=== PATIENT | female | born 1965 | race Caucasian/White ===

== ENCOUNTER → 2020-01-10 10:52 | Outpatient (BNVA) | payer OTHER, MEDICAID, SELFPAY | PROVIDERS: Family Provider Family Medicine; PCP Family Medicine; Visit Provider Family Medicine | DX: J44.9 Chronic obstructive pulmonary disease, unspecified (principal); K86.3 Pseudocyst of pancreas; J30.9 Allergic rhinitis, unspecified; N76.0 Acute vaginitis; B37.3 Candidiasis of vulva and vagina; Z13.6 Encounter for screening for cardiovascular disorders; Z13.220 Encounter for screening for lipoid disorders | CPT/HCPCS: 80053; 80061; 83690; 85025 ==

== ENCOUNTER 2020-01-28 13:27 | Inpatient (IN) | payer MEDICARE, MEDICAID, SELFPAY ==
[2020-01-28] VITALS (17 sets, daily range): BP systolic 92–112; BP diastolic 56–74; PULSE 76–111; RESP 18–37; TEMP 36.7–37.3; O2SAT 86–100; BMI 27.8
--- NOTE | 2020-01-28 13:56 | ECG_ITS ---
Measurements Intervals [place] Rate: 100 P: 36 MI: 125 QRS: -17 QRSD: 97 T: 26 QT: 338 QTc: 437 SINUS TACHYCARDIA POSSIBLE LEFT ATRIAL ENLARGEMENT [-0.1mV P WAVE IN V1/V2] No previous ECG available for comparison Electronically Signed On 01-28-2020 19:42:09 CDT by Tiffany Granda M.D. [id number]
--- NOTE | 2020-01-28 13:56 | XR_ITS ---
WS: [id number] Portable AP upright chest, 01/28/2020 Clinical Data: dyspnea Comparison: None. Findings: Bilateral patchy opacities are seen throughout both lungs. These opacities could represent early pneumonia or an unusual pulmonary vascular congestion. The heart size is normal. No pleural eff usions are seen. There are no large masses. There are clips in the right upper quadrant from a cholec ystectomy. XR/XR chest 1V portable [id number] Impression: 1. Diffuse bilateral patchy opacities which could represent diffuse pneumonia o r unusual pulmonary edema. 2. Recommend repeat chest x-ray in one to 2 days.
[2020-01-28] MEDS: sodium chloride 0.9% 1,000 ML 999 ML IV (14:16)
[2020-01-28] MEDS: ketorolac 30 mg/mL INJ 15 MG IVP (14:17)
[2020-01-28 14:27] LABS: ABG PCO2 37.9 mmHg (35-45); ABG PH Result 7.43 (7.35-7.45); Arterial Blood Gas Hematocrit 41.2 % (37-47); Base Excess ABG 1.1 mmol/L (-2.0-2.0); Blood Gas Allen Test Pos; Blood Gas Sample Site Radial, right; Blood Gas Sample Type Arterial; HCO3 ABG 25.3 mmol/L (22-26); Oxygen Device NC; PO2 ABG 72.1 mmHg (80.0-100.0)
[2020-01-28 14:27] LABS: Basophils % 0.4 %; Eosinophils # 0.7 10^3/uL (0.0-0.8); Eosinophils % 7.3 %; Hematocrit 40.7 % (37.0-47.0); Hemoglobin 13.1 g/dL (11.5-15.3); Lymphocytes # 1.1 10^3/uL (0.8-4.8); Lymphocytes % 11.7 %; Mean Corpuscular HGB Conc 32.2 g/dL (30.0-36.0); Mean Corpuscular Hemoglobin 30.7 pg (28.0-34.0); Mean Corpuscular Volume 95.3 fL (81-99); Mean Platelet Volume 11.3 fL (7.4-10.4); Monocytes # 0.4 10^3/uL (0.2-0.9); Monocytes % 4.2 %; Neutrophils # 7.4 10^3/uL (1.8-7.7); Nucleated Red Blood Cells % 0 %; Platelet Count 155 10^3/cmm (130-400); Red Blood Count 4.27 10^6/uL (4.1-5.3); Red Cell Distribution Width 14.1 % (12.1-15.1); White Blood Count 9.8 10^3/uL (4.0-10.0)
[2020-01-28 14:29] LABS: Lactate (Lactic Acid level) 2.5 mmol/L (0.5-2.2)
[2020-01-28 14:31] LABS: Troponin(5th) Baseline 10 ng/mL (0-10)
--- NOTE | 2020-01-28 14:33 | ED_ITS ---
HPI - Chest Pain General: Chief Complaint: Chest Pain Stated Complaint: cp/ sob Time Seen by Provider: 01/28/20 13:43 History of Present Illness: HPI narrative: Patient is a 54-year-old female presenting with shortness of breath. She reports that the shortness of breath started 3 days ago without any obvious cause. She did fall about a week ago and hit the left side of her ribs and her left shoulder on a bathtub. She does not think that caused her shortness of breath. She has had a productive cough. She had a low-grade fever less than 100 today. She does not normally have any problems with her lungs but has had an episode of pneumonia in the past. She denies any cardiac history. She is having pain across the left lower rib cage which she describes as dull and aching. She denies any sick contacts, travel, loss of sense of smell or taste. complaint: chest pain and chest heaviness Onset (ago): day(s) (3) Timing of current episode: constant Prior episodes: No Onset: during rest Pain location: left chest Pain radiation: back Severity: moderate Quality: aching and heaviness Relieving factors: nothing Exacerbating factors: nothing Associated symptoms: Reports diaphoresis, dyspnea, fever(s) and nausea; Deny vomiting Review of Systems General: Reports: 10 or more systems reviewed and unremarkable except in HPI and below Const: Reports: fever(s), chills, change in appetite, fatigue, malaise and diaphoresis; Denies: body aches ENMT: Denies: throat pain or odynophagia Card: Reports: chest pain, swelling of feet/ankles and lightheadedness Resp: Reports: dyspnea, productive cough and wheezing GI: Reports: nausea; Denies: vomiting, diarrhea or constipation : Denies: difficulty voiding or dysuria Musc: Reports: back pain, extremity swelling and other (ecchymosis left shoulder) Neuro: Denies: headache(s), numbness in extremities or weakness in extremities Codey/Lymph: Denies: easy bruising or easy bleeding PFS ED PFSH: Medical History Chronic constipation Chronic idiopathic pain syndrome Chronic neck pain Chronic pain of right knee COPD (chronic obstructive pulmonary disease) Fibromyalgia Hypokalemia Overactive bladder Pancreatic pseudocyst Spinal stenosis of lumbar region Surgical History H/O gastric bypass History of knee replacement Social History Smoking and tobacco status: current every day smoker cigarettes Packs smoked per day: 0.5 Quit status (tobacco): not considering quitting Alcohol intake: never History of recent travel: No Physical Exam Const: COMMON NORMALS: average body habitus, patient oriented x3 and alert GENERAL APPEARANCE: lethargic (slightly) ORIENTATION/CONSCIOUSNESS: Yes lethargic (slightly) HENMT: COMMON NORMALS: hearing grossly normal bilaterally HEAD & SCALP: normal to inspection FACE & SINUS: normal facial exam Eye: COMMON NORMALS: Equal, round and reactive pupils present and EOMs intact bilaterally PUPIL: Yes Equal, round and reactive pupils present Neck/C-Spine: COMMON NORMALS: full ROM, supple and no meningeal signs Chest: COMMONS NORMALS: normal inspection of the chest CHEST: Yes tenderness (mild left lateral ribs) Resp: EFFORT & INSPECTION: Yes tachypneic and Yes uses accessory muscles AUSCULTATION: wheezes expiratory wheezes, inspiratory wheezes, left lower and left upper and diminished lung sounds on the left Cardio: COMMON NORMALS: regular rate and No murmurs present (Cardio) RATE: regular rate GI: COMMON NORMALS: Normal to inspection, nondistended, normoactive bowel sounds present, Soft to palpation, non-tender, No hepatosplenomegaly present and no masses PALPATION: Yes Soft to palpation and Yes No hepatosplenomegaly present Back/Pelvis: COMMON NORMALS: thoracic and lumbar spine normal to inspection Neuro: COMMON NORMALS: patient oriented x3 SENSORIUM/ORIENTATION: Yes alert and Yes lethargic (slightly) MENINGEAL SIGNS: Yes no meningeal signs CRANIAL NERVES: Yes CN normal except as noted Skin: SKIN IMAGES (FEMALE): 1. ecchymosis Course ED course: Patient with severe shortness of breath and chest pain for 3 days. Markedly hypoxic on room air. She also reports fever, body aches, cough. I suspect the shortness of breath is related to CHF based on her labs and chest x- ray. She is also being ruled out for COVID. I gave her dose of Lasix in the ER as well as a dose of Lovenox. Her d-dimer is also quite elevated but doing a CT at this time will be difficult because of the COVID rule out. If she does rule out she can go for CT tomorrow. In the meanwhile she is anticoagulated. Consultations: Consultation #1: Hospitalist consulted for admission. Vital Signs: Vital signs: Vital Signs Temperature 99.2 F 01/28/20 13:27 Pulse Rate 111 H 01/28/20 13:27 Respiratory Rate 18 01/28/20 15:25 Blood Pressure 103/61 01/28/20 13:27 Pulse Oximetry 99 01/28/20 15:25 MDM - Chest Pain MDM Narrative: Medical decision making narrative: Chest pain, recent fall but no sign of fractures. Chest x-ray with signs of fluid overload. BNP elevated. Troponin and EKGs normal. COVID pending. Lab Data: Labs: Lab Results 01/28/20 01/28/20 01/28/20 Range/Units 14:04 14:04 14:04 WBC 9.8 (4.0-10.0) 10^3/ uL RBC 4.27 (4.1-5.3) 10^6/u L Hgb 13.1 (11.5-15.3) g/dL Hct 40.7 (37.0-47.0) % MCV 95.3 (81-99) fL MCH 30.7 (28.0-34.0) pg MCHC 32.2 (30.0-36.0) g/dL RDW 14.1 (12.1-15.1) % Plt Count 155 (130-400) 10^3/c mm MPV 11.3 H (7.4-10.4) fL Neut % (Auto) 76.0 % Lymph % (Auto) 11.7 % Villalba % (Auto) 4.2 % Eos % (Auto) 7.3 % Baso % (Auto) 0.4 % Neut # (Auto) 7.4 (1.8-7.7) 10^3/u L Lymph # (Auto) 1.1 (0.8-4.8) 10^3/u L Villalba # (Auto) 0.4 (0.2-0.9) 10^3/u L Eos # (Auto) 0.7 (0.0-0.8) 10^3/u L Baso # (Auto) 0.0 (0.0-0.1) 10^3/u L Nucleated RBC % (a uto) 0 % Nucleated RBCs # 0.0 /100WBC ESR 35 H (0-15) mm/hr D-Dimer (0-0.59) ug/mIFE U Specimen Type Sample Site ABG pH (7.35-7.45) ABG pCO2 (35-45) mmHg ABG pO2 (80.0-100.0) mmH g ABG HCO3 (22-26) mmol/L ABG Base Excess (-2.0-2.0) mmol/ L Michael Test Hematocrit (37-47) % O2 Delivery Device O2 Liters/Min % Carbide Tool Die Maker ID Sodium 141 (136-145) mmol/L Potassium 4.9 (3.5-5.1) mmol/L Chloride 103 (98-107) mmol/L Carbon Dioxide 24 (22-29) mmol/L Anion Gap 18.9 (5-19) BUN 10 (6-20) mg/dL Creatinine 0.6 (0.5-0.9) mg/dL GFR Calculation 103.8 (90-130) mL/min Glucose 99 (65-115) mg/dL Calculated Osmolal ity 288 (285-295) mOsm/k g Lactate (0.5-2.2) mmol/L Calcium 9.6 (8.5-10.5) mg/dL Total Bilirubin 0.9 (0.15-1.2) mg/dL AST 43 H (0-32) U/L ALT 23 (0-33) U/L Alkaline Phosphata se 106 H (35-105) IU/L Troponin T Baselin e (0-10) ng/mL C-Reactive Protein 214.6 H (0.0-4.9) mg/L NT-Pro-B Natriuret Pep 1588 H (0-125) pg/mL Total Protein 6.2 L (6.6-8.7) g/dL Albumin 3.3 L (3.5-5.2) g/dL Globulin 2.9 (1.3-4.6) g/dL Procalcitonin 0.24 (0-0.5) ng/mL Urine Color (Yellow) Urine Appearance (CLEAR) Urine pH (5-7) Ur Specific Gravit y (1.005-1.030) Urine Protein (Negative) Urine Glucose (UA) (Normal) Urine Ketones (Negative) Urine Blood (Negative) Urine Nitrate (Negative) Urine Bilirubin (NEGATIVE) Urine Urobilinogen (Negative) mg/dL Ur Leukocyte Sabi ase (Negative) Urine RBC (0-2) /hpf Urine WBC (0-5) /hpf Ur Squamous Epith Cells (0-5) Urine Bacteria (NONE) 01/28/20 01/28/20 01/28/20 Range/Units 14:04 14:04 14:04 WBC (4.0-10.0) 10^3/ uL RBC (4.1-5.3) 10^6/u L Hgb (11.5-15.3) g/dL Hct (37.0-47.0) % MCV (81-99) fL MCH (28.0-34.0) pg MCHC (30.0-36.0) g/dL RDW (12.1-15.1) % Plt Count (130-400) 10^3/c mm MPV (7.4-10.4) fL Neut % (Auto) % Lymph % (Auto) % Villalba % (Auto) % Eos % (Auto) % Baso % (Auto) % Neut # (Auto) (1.8-7.7) 10^3/u L Lymph # (Auto) (0.8-4.8) 10^3/u L Villalba # (Auto) (0.2-0.9) 10^3/u L Eos # (Auto) (0.0-0.8) 10^3/u L Baso # (Auto) (0.0-0.1) 10^3/u L Nucleated RBC % (a uto) % Nucleated RBCs # /100WBC ESR (0-15) mm/hr D-Dimer 1.98 H (0-0.59) ug/mIFE U Specimen Type Sample Site ABG pH (7.35-7.45) ABG pCO2 (35-45) mmHg ABG pO2 (80.0-100.0) mmH g ABG HCO3 (22-26) mmol/L ABG Base Excess (-2.0-2.0) mmol/ L Michael Test Hematocrit (37-47) % O2 Delivery Device O2 Liters/Min % Carbide Tool Die Maker ID Sodium (136-145) mmol/L Potassium (3.5-5.1) mmol/L Chloride (98-107) mmol/L Carbon Dioxide (22-29) mmol/L Anion Gap (5-19) BUN (6-20) mg/dL Creatinine (0.5-0.9) mg/dL GFR Calculation (90-130) mL/min Glucose (65-115) mg/dL Calculated Osmolal ity (285-295) mOsm/k g Lactate 2.5 H (0.5-2.2) mmol/L Calcium (8.5-10.5) mg/dL Total Bilirubin (0.15-1.2) mg/dL AST (0-32) U/L ALT (0-33) U/L Alkaline Phosphata se (35-105) IU/L Troponin T Baselin e 10 (0-10) ng/mL C-Reactive Protein (0.0-4.9) mg/L NT-Pro-B Natriuret Pep (0-125) pg/mL Total Protein (6.6-8.7) g/dL Albumin (3.5-5.2) g/dL Globulin (1.3-4.6) g/dL Procalcitonin (0-0.5) ng/mL Urine Color (Yellow) Urine Appearance (CLEAR) Urine pH (5-7) Ur Specific Gravit y (1.005-1.030) Urine Protein (Negative) Urine Glucose (UA) (Normal) Urine Ketones (Negative) Urine Blood (Negative) Urine Nitrate (Negative) Urine Bilirubin (NEGATIVE) Urine Urobilinogen (Negative) mg/dL Ur Leukocyte Sabi ase (Negative) Urine RBC (0-2) /hpf Urine WBC (0-5) /hpf Ur Squamous Epith Cells (0-5) Urine Bacteria (NONE) 01/28/20 01/28/20 Range/Units 14:16 14:21 WBC (4.0-10.0) 10^3/ uL RBC (4.1-5.3) 10^6/u L Hgb (11.5-15.3) g/dL Hct (37.0-47.0) % MCV (81-99) fL MCH (28.0-34.0) pg MCHC (30.0-36.0) g/dL RDW (12.1-15.1) % Plt Count (130-400) 10^3/c mm MPV (7.4-10.4) fL Neut % (Auto) % Lymph % (Auto) % Villalba % (Auto) % Eos % (Auto) % Baso % (Auto) % Neut # (Auto) (1.8-7.7) 10^3/u L Lymph # (Auto) (0.8-4.8) 10^3/u L Villalba # (Auto) (0.2-0.9) 10^3/u L Eos # (Auto) (0.0-0.8) 10^3/u L Baso # (Auto) (0.0-0.1) 10^3/u L Nucleated RBC % (a uto) % Nucleated RBCs # /100WBC ESR (0-15) mm/hr D-Dimer (0-0.59) ug/mIFE U Specimen Type Arterial Sample Site Radial, right ABG pH 7.43 (7.35-7.45) ABG pCO2 37.9 (35-45) mmHg ABG pO2 72.1 L (80.0-100.0) mmH g ABG HCO3 25.3 (22-26) mmol/L ABG Base Excess 1.1 (-2.0-2.0) mmol/ L Michael Test Pos Hematocrit 41.2 (37-47) % O2 Delivery Device Nc O2 Liters/Min 4.0 % Carbide Tool Die Maker ID jmn Sodium (136-145) mmol/L Potassium (3.5-5.1) mmol/L Chloride (98-107) mmol/L Carbon Dioxide (22-29) mmol/L Anion Gap (5-19) BUN (6-20) mg/dL Creatinine (0.5-0.9) mg/dL GFR Calculation (90-130) mL/min Glucose (65-115) mg/dL Calculated Osmolal ity (285-295) mOsm/k g Lactate (0.5-2.2) mmol/L Calcium (8.5-10.5) mg/dL Total Bilirubin (0.15-1.2) mg/dL AST (0-32) U/L ALT (0-33) U/L Alkaline Phosphata se (35-105) IU/L Troponin T Baselin e (0-10) ng/mL C-Reactive Protein (0.0-4.9) mg/L NT-Pro-B Natriuret Pep (0-125) pg/mL Total Protein (6.6-8.7) g/dL Albumin (3.5-5.2) g/dL Globulin (1.3-4.6) g/dL Procalcitonin (0-0.5) ng/mL Urine Color Yellow (Yellow) Urine Appearance Clear (CLEAR) Urine pH 5 (5-7) Ur Specific Gravit y 1.010 (1.005-1.030) Urine Protein Neg (Negative) Urine Glucose (UA) Norm (Normal) Urine Ketones Negative (Negative) Urine Blood 2+ H (Negative) Urine Nitrate Negative (Negative) Urine Bilirubin Neg (NEGATIVE) Urine Urobilinogen 1 H (Negative) mg/dL Ur Leukocyte Sabi ase Negative (Negative) Urine RBC 0-4 H (0-2) /hpf Urine WBC None (0-5) /hpf Ur Squamous Epith Cells 0-4 H (0-5) Urine Bacteria Trace (NONE) EKG Data^: EKG 1: EKG interpretation date: 01/28/20 EKG interpretation time: 13:07 Interpretation: Sinus tach at 100. Normal intervals and axis. No ST changes EKG 2: EKG interpretation date: 01/28/20 EKG interpretation time: 16:55 Interpretation: NSR at 87. Normal intervals and axis. No ST changes. Discharge Plan Discharge Admit Provider: Lencho Zhang Coding Level of Care Code ED Coagulating Bath Operator for g Fwd Exam Comprehensive
[2020-01-28 14:41] LABS: NT Pro B Type Natriuretic Pept 1588 pg/mL (0-125); Procalcitonin 0.24 ng/mL (0-0.5)
[2020-01-28 14:52] LABS: Alanine Aminotransferase 23 U/L (0-33); Albumin Level 3.3 g/dL (3.5-5.2); Alkaline Phosphatase 106 IU/L (35-105); Anion Gap 18.9 (5-19); Aspartate Amino Transferase 43 U/L (0-32); Blood Urea Nitrogen 10 mg/dL (6-20); C Reactive Protein 214.6 mg/L (0.0-4.9); Calcium 9.6 mg/dL (8.5-10.5); Carbon Dioxide 24 mmol/L (22-29); Chloride 103 mmol/L (98-107); Globulin 2.9 g/dL (1.3-4.6); Glomerular Filtration Rate 103.8 mL/min (90-130); Glucose 99 mg/dL (65-115); Osmolality Calculated 288 mOsm/kg (285-295); Potassium 4.9 mmol/L (3.5-5.1); Sodium 141 mmol/L (136-145); Total Bilirubin 0.9 mg/dL (0.15-1.2); Total Protein 6.2 g/dL (6.6-8.7)
[2020-01-28 15:15] LABS: Add Urine Microscopic? YES; Bilirubin Urine Neg (NEGATIVE); Blood Urine 2+ (Negative); Glucose Urine UA Norm (Normal); Ketones Urine Negative (Negative); Leukocyte Esterase Urine Negative (Negative); Nitrate Urine Negative (Negative); Protein Urine Neg (Negative); Urine Appearance Clear (CLEAR); Urine Color Yellow (Yellow); Urobilinogen Urine 1 mg/dL (Negative); pH Urine 5 (5-7)
[2020-01-28] MEDS: ondansetron 2 mg/ML SDV 2 mL 4 MG IVP (15:24)
[2020-01-28] MEDS: morphine 4 mg/mL SDV 1 mL IVP (15:25)
[2020-01-28 15:29] LABS: Add Urine Culture? No; Bacteria Urine TRACE; RBC Urine 0-4 /hpf (0-2); Squamous Epithelial Cell Urine 0-4 (0-5)
[2020-01-28] MEDS: FUROsemide 10 mg/mL SDV 4mL 40 MG IVP (15:30)
[2020-01-28 15:50] LABS: Erythrocyte Sedimentation Rate 35 mm/hr (0-15)
--- NOTE | 2020-01-28 15:56 | ECG_ITS ---
Measurements Intervals [place] Rate: 87 P: 53 NC: 127 QRS: -14 QRSD: 95 T: 30 QT: 368 QTc: 443 SINUS RHYTHM LEFT ATRIAL ENLARGEMENT INCOMPLETE RIGHT BUNDLE BRANCH BLOCK No previous ECG available for comparison Electronically Signed On 01-28-2020 20:16:28 CDT by Tiffany Granda M.D. [id number]
[2020-01-28 16:15] LABS: D Dimer 1.98 ug/mIFEU (0-0.59)
[2020-01-28] MEDS: enoxaparin 80 mg/0.8 mL Syringe 70 MG SUBCUT (16:55)
--- NOTE | 2020-01-28 18:07 | PM.HP ---
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 This is accompanied by cough, occasionally with beige/yellowish sputum. 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 In ER she is noted requiring 4 L of oxygen, with diffuse bilateral patchy opacities representing diffuse pneumonia or unusual pulmonary edema. She does report bilateral lower extremity swelling which is new, although does report that it started on the right side with severe edema, then spread to both legs. She is a current smoker, and I see that she does take estrogen. She does have noted sinus tachycardia. She denies history of DVT or PE. She denies known history of coronary disease or heart failure. With normal renal function her BNP is elevated at 1588. The same time she does not have very significant orthopnea. She does report having fever on Tuesday enough to make her sweat, although did not measure it. In ER highest temperature is 99.2. She denies any sick contacts. Denies any travel. Review of Systems Const: Reports: malaise; Denies: fever(s), chills or body aches Eyes: Denies: change in vision or eye redness ENMT: Denies: throat pain, oral sores or ear or mastoid pain Card: Reports: chest pain, edema and dyspnea on exertion; Denies: pre-syncope Resp: Reports: dyspnea, productive cough and change in phlegm color; Denies: hemoptysis GI: Denies: abdominal pain, nausea, vomiting, diarrhea, constipation, hematochezia or melena : Denies: flank pain, urinary frequency or hematuria Musc: Denies: back pain, joint swelling or joint redness Skin/Breast: Denies: rash, sores or new lesions Neuro: Denies: headache(s), numbness in extremities, weakness in extremities, dizziness, confusion or seizure-like activity Endo: Denies: polyuria or polydipsia Codey/Lymph: Denies: easy bleeding or purpura All/Imm: Denies: urticaria, throat swelling or tongue swelling Medications/Allergies Home Medications Medication Instructions Recorded Confirmed Last Taken Type albuterol sulfate 90 mcg/actuation 1 inh INHALATION QID 10/13/19 01/28/20 01/28/20 History aerosol inhaler budesonide-formoterol HFA 160 2 puff INHALATION BID 10/13/19 01/28/20 01/28/20 History mcg-4.5 mcg/actuation aerosol inhaler cyanocobalamin (vitamin B-12) 1,000 mcg PO DAILY 10/13/19 01/28/20 01/28/20 History 1,000 mcg capsule eszopiclone 1 mg tablet 1 mg PO .bedtime tab 10/13/19 01/28/20 01/27/20 History ferrous sulfate 325 mg (65 mg 325 mg PO DAILY 10/13/19 01/28/20 01/28/20 History iron) tablet linaclotide 145 mcg capsule 145 mcg PO DAILY 10/13/19 01/28/20 01/28/20 History meloxicam 15 mg tablet 15 mg PO DAILY 10/13/19 01/28/20 01/28/20 History montelukast 10 mg tablet 10 mg PO DAILY 10/13/19 01/28/20 01/27/20 History oxycodone 10 mg tablet 10 mg PO TID PRN 10/13/19 01/28/20 01/28/20 History pregabalin 150 mg capsule 150 mg PO BID 10/13/19 01/28/20 01/28/20 History tizanidine 4 mg capsule See Rx Instructions PO DAILY PRN 10/14/19 01/28/20 01/28/20 Rx #30 cap MDD UP TO 2 CAPS fluticasone propionate 50 2 spray INTRANASAL Q12H 30 Days 01/10/20 01/28/20 01/27/20 Rx mcg/actuation nasal #18.2 ml spray,suspension kmviqw-gwvlsxwi-snicuch 1 cap PO BID 30 Days #60 cap 01/10/20 01/28/20 01/28/20 Rx 12,000-38,000-60,000 unit capsule,delayed rel loratadine 10 mg tablet 10 mg PO DAILY 30 Days #30 tab 01/10/20 01/28/20 01/28/20 Rx conjugated estrogens [Premarin] 0.3 mg PO DAILY 01/28/20 01/28/20 01/27/20 History hydroxyzine pamoate 50 mg PO BID 01/28/20 01/28/20 01/28/20 History lactulose 10 g PO DAILY 01/28/20 01/28/20 01/27/20 History pantoprazole 20 mg PO DAILY 01/28/20 01/28/20 01/28/20 History teriparatide [Forteo] 20 mcg SUBCUT DAILY 01/28/20 01/28/20 01/27/20 History Allergies Allergy/AdvReac Type Severity Reaction Status Date / Time Penicillins Allergy Unknown UNKNOWN Verified 01/10/20 09:26 tramadol Allergy Unknown UNKNOWN Verified 01/10/20 09:26 PFSH Acute PFSH: Medical History (Updated 01/28/20 @ 18:34 by Lencho Zhang MD) Chronic constipation Chronic idiopathic pain syndrome Chronic neck pain Chronic pain of right knee COPD (chronic obstructive pulmonary disease) Fibromyalgia Hypokalemia Overactive bladder Pancreatic pseudocyst Spinal stenosis of lumbar region Surgical History (Updated 01/28/20 @ 18:29 by Lencho Zhang MD) H/O gastric bypass H/O: hysterectomy History of carpal tunnel surgery History of knee replacement Hx of cholecystectomy Family History (Updated 01/28/20 @ 18:27 by Lencho Zhang MD) Other CAD (coronary artery disease) Diabetes Hyperlipidemia Social History Smoking and tobacco status: current every day smoker cigarettes Packs smoked per day: 0.5 Quit status (tobacco): not considering quitting Alcohol intake: never History of recent travel: No Vitals/I&O/Wt Last Vital Signs Temp 99.2 F 01/28/20 13:27 Pulse 76 01/28/20 17:55 Resp 18 01/28/20 17:55 BP 112/74 01/28/20 17:55 Pulse Ox 98 01/28/20 17:55 Weight last 48 hrs Weight 68.039 kg Physical Exam Const: COMMON NORMALS: no acute distress and patient oriented x3 HENMT: COMMON NORMALS: oropharynx normal Neck/C-Spine: COMMON NORMALS: no JVD Resp: COMMON NORMALS: normal respiratory effort AUSCULTATION: wheezes and diminished lung sounds Cardio: COMMON NORMALS: no JVD, regular rhythm, S1 normal heart sound present, S2 normal heart sound present and No murmurs present (Cardio) RATE: tachycardic RHYTHM: regular rhythm HEART SOUNDS: S1 normal heart sound present and S2 normal heart sound present GI: COMMON NORMALS: Normal to inspection, nondistended, normoactive bowel sounds present, Soft to palpation and non-tender PALPATION: Yes Soft to palpation Extremity: COMMON NORMALS: no joint enlargement GENERAL: Yes edema Neuro: COMMON NORMALS: patient oriented x3 and moves all extremities Skin: COMMON NORMALS: no rashes or lesions noted GENERAL SKIN EXAM: no rashes or lesions noted Data : 01/28/20 14:04 01/28/20 14:04 A&P Assessment and plan (1) Acute respiratory failure with hypoxia: Currently requiring 4 L of oxygen by nasal cannula. Appears this may be multifactorial including COPD with severe exacerbation with cough, productive yellowish sputum, hypoxia. Dyspnea. Not normally on oxygen. Will treat with IV steroid, antibiotic, inhalers, check COVID-19, check rapid flu. Appears to also possibly have atypical pneumonia bilaterally. As above. For now maintain isolation. Alternatively he also may be having CHF with elevated BNP, bilateral pleural edema, peripheral edema. This appears would be new onset. Check troponin and EKG series to rule out acute ME due to chest pain. TTE. Lasix. With also chest pain, cough, hypoxia, leg swelling which started unilaterally discussed with her with d-dimer which is not low cannot rule out the she has DVT/PE, and at this time this appears there is fairly good likelihood that she may, considering also the fact that she is a smoker, takes estrogen. She is agreeable at this time to start with anticoagulation, then once she is able to obtain CTA versus VQ scan for additional work-up. Status: Acute (2) Chest pain: Chest tightness, occasional sharp pain traveling from mid bottom to the left shoulder. This gets worse with coughing, also makes her take shallow breaths. At this time monitor troponin EKG series. Monitor on telemetry. Assess TTE. Other assessment and management as above. Status: Acute Additional A&P Information Smoking addiction: Discussed with her cessation for 3-1/2 minutes, she says that she has tried quitting in the past, and is currently down to half a pack per day. She states she will continue trying. Will offer her nicotine patches, gum for cravings. Fibromyalgia Pancreatic pseudocyst Chronic constipation Attestations Medical Necessity Statement*: Admission of over 2 midnights is been needed for assessment of management of acute respiratory failure with hypoxia. Coding Level of Care Code Acute Stripping And Booking Machine Operator for Wesly Child Diagnoses Acute respiratory failure with hypoxia J96.01 Chest pain R07.9
[2020-01-28] MEDS: levofloxacin-dextrose 5 % 750 MG/150 ML PREMIX 100 MG IV (19:24)
--- NOTE | 2020-01-28 19:56 | ECG_ITS ---
Measurements Intervals [place] Rate: 78 P: 62 NE: 130 QRS: -8 QRSD: 96 T: 24 QT: 392 QTc: 447 SINUS RHYTHM WITH SINUS ARRHYTHMIA POSSIBLE LEFT ATRIAL ENLARGEMENT [-0.1mV P WAVE IN V1/V2] INCOMPLETE RIGHT BUNDLE BRANCH BLOCK [90+ ms QRS DURATION, TERMINAL R IN V1/V2, 40+ ms S IN I/aVL/V4/V5/V6] Compared to ECG 01/28/2020 16:51:28 No significant changes Electronically Signed On 01-29-2020 20:51:42 CDT by Codie Rebollar M.D. [email or web address]
[2020-01-28] MEDS: fluticasone nasal spray 16gm Btl 2 SPRAY INTRANASAL (21:19)
[2020-01-28] MEDS: montelukast sodium 10 mg Tablet PO (21:19)
[2020-01-28] MEDS: oxyCODONE 5 mg IR Tab/Cap 10 MG PO (21:19)
[2020-01-28 21:30] LABS: Troponin 5 6HR 10.69 ng/mL (0-10); Troponin 5 6HR Delta 0.69 ng/L (0-12)
[2020-01-28] MEDS: albuterol 8 gm MDI 1 PUFF INHALATION (21:50)
[2020-01-28 22:24] LABS: Influenza A by IFA Negative (Negative)
[2020-01-28 22:25] LABS: Influenza B by IFA Negative (Negative)
[2020-01-29] VITALS (25 sets, daily range): BP systolic 93–115; BP diastolic 59–78; PULSE 70–105; RESP 18–36; TEMP 36.8–37.1; O2SAT 92–100
[2020-01-29] MEDS: FUROsemide 10 mg/mL SDV 4mL 40 MG IVP ×2 (04:11→15:16)
[2020-01-29] MEDS: enoxaparin 80 mg/0.8 mL Syringe 70 MG SUBCUT ×2 (04:11→17:55)
[2020-01-29 05:36] LABS: Basophils % 0.2 %; Eosinophils % 0.2 %; Hematocrit 40.2 % (37.0-47.0); Lymphocytes # 0.3 10^3/uL (0.8-4.8); Lymphocytes % 5.8 %; Mean Corpuscular HGB Conc 32.3 g/dL (30.0-36.0); Mean Corpuscular Hemoglobin 31.4 pg (28.0-34.0); Mean Corpuscular Volume 97.1 fL (81-99); Mean Platelet Volume 12.1 fL (7.4-10.4); Monocytes # 0.1 10^3/uL (0.2-0.9); Monocytes % 1.3 %; Neutrophils # 4.1 10^3/uL (1.8-7.7); Neutrophils % 92.1 %; Nucleated Red Blood Cells % 0 %; Platelet Count 145 10^3/cmm (130-400); Red Blood Count 4.14 10^6/uL (4.1-5.3); Red Cell Distribution Width 14.2 % (12.1-15.1); White Blood Count 4.5 10^3/uL (4.0-10.0)
[2020-01-29 05:52] LABS: Alanine Aminotransferase 22 U/L (0-33); Albumin Level 3.3 g/dL (3.5-5.2); Alkaline Phosphatase 102 IU/L (35-105); Anion Gap 14.6 (5-19); Aspartate Amino Transferase 33 U/L (0-32); Blood Urea Nitrogen 11 mg/dL (6-20); Carbon Dioxide 29 mmol/L (22-29); Chloride 99 mmol/L (98-107); Globulin 2.9 g/dL (1.3-4.6); Glomerular Filtration Rate 103.8 mL/min (90-130); Glucose 163 mg/dL (65-115); Osmolality Calculated 286 mOsm/kg (285-295); Potassium 4.6 mmol/L (3.5-5.1); Sodium 138 mmol/L (136-145); Total Bilirubin 0.6 mg/dL (0.15-1.2); Total Protein 6.2 g/dL (6.6-8.7)
[2020-01-29] MEDS: cyanocobalamin 1,000 mcg Tablet 1000 MCG PO (08:32)
[2020-01-29] MEDS: pregabalin 150 mg Capsule PO ×2 (08:32→17:55)
[2020-01-29] MEDS: oxyCODONE 5 mg IR Tab/Cap 10 MG PO ×3 (08:32→23:09)
[2020-01-29] MEDS: pantoprazole DR 40 mg Tablet PO (08:32)
[2020-01-29] MEDS: albuterol 8 gm MDI 1 PUFF INHALATION ×3 (09:03→15:33)
[2020-01-29] MEDS: loratadine 10 mg Tablet PO (10:51)
--- NOTE | 2020-01-29 15:00 | USCV_ITS ---
Zack Barraza Age: 54 Gender: F : 1965 Exam Date: 01/29/2020 15:55 Ordering Phys: Lencho Zhang MD Technologist: Addie Orona [place] [facility] [place]: CHF BP: 101 / 65 HR: 71 Rhythm: Sinus Technical Quality: Adequate MEASUREMENTS (Male / Female) Normal Values 2D ECHO LV Diastolic Diameter PLAX 3.6 cm 4.2 - 5.9 / 3.9 - 5.3 cm LV Systolic Diameter PLAX 2.9 cm LV Chamber Size 3.8 cm IVS Diastolic Thickness 1.1 cm 0.6 - 1.0 / 0.6 - 0.9 cm IVS Systolic Thickness 1.2 cm LVPW Diastolic Thickness 1.6 cm 0.6 - 1.0 / 0.6 - 0.9 cm LVPW Systolic Thickness 2.1 cm RV Chamber Size 3.1 cm LVOT Diameter 2.0 cm LV Ejection Fraction 2D Teich 43.7 % LV Ejection Fraction MOD 2C 81.9 % LV Ejection Fraction 2C AL 82.0 % LA Diameter 3.1 cm LA Width 2.2 cm LA Height 3.7 cm RA Width 3.1 cm RA Height 3.9 cm Aorta at Sinotubular Diameter 2.9 cm M-MODE LV Diastolic Diameter MM 4.1 cm 4.2 - 5.9 / 3.9 - 5.3 cm LV Systolic Diameter MM 2.8 cm LV Ejection Fraction MM Teich 59.8 % IVS Diastolic Thickness MM 1.2 cm 0.6 - 1.0 / 0.6 - 0.9 cm IVS Systolic Thickness MM 1.4 cm LVPW Diastolic Thickness MM 1.2 cm 0.6 - 1.0 / 0.6 - 0.9 cm LVPW Systolic Thickness MM 1.2 cm Aortic Annulus Diameter 3.4 cm LA Ao Ratio MM 0.9 MV E Point Septal Separation 1.3 cm DOPPLER AV Peak Velocity 151.0 cm/s LVOT Peak Velocity 114.0 cm/s AV Area Cont Eq vti 2.4 cm squared AV Area Cont Eq pk 2.5 cm squared MV Area PHT 2.8 cm squared Mitral E to A Ratio 0.8 MV E' Velocity 12.0 cm/s Mitral E to MV E' Ratio 8.5 Mitral E to LV E' Lateral Ratio 7.3 Mitral E to LV E' Septal Ratio 10.1 TR Peak Velocity 279.0 cm/s TR Peak Gradient 31.0 mmHg TV Peak E Velocity 70.0 cm/s Right Atrial Pressure 3.0 mmHg Pulmonary Artery Systolic Pressu 34.1 mmHg PV Peak Velocity 87.0 cm/s RV Acceleration Time 0.1 s RV Ejection Time 0.3 s RV AcT/ET 0.4 FINDINGS Left Ventricle Frequent supraventricular ectopy noted. Normal left ventricular size, systolic function and wall thickness, with no regional wall motion abnormalities. Grade I/IV diastolic dysfunction (abnormal relaxation filling pattern), normal to mildly elevated filling pressures. Left ventricular ejection fraction is estimated at 55-60 %. Right Ventricle Normal right ventricular size and systolic function. Mild pulmonary hypertension, RVSP 34.1 mmHg. Right Atrium The right atrium is normal in size. Left Atrium The left atrium is normal in size. Mitral Valve Structurally normal mitral valve without significant stenosis or prolapse. There is no mitral regurgitation. Aortic Valve Structurally normal aortic valve without significant sclerosis or stenosis. There is no aortic regurgitation. Tricuspid Valve Structurally normal tricuspid valve. Trace to mild tricuspid valve regurgitation. Pulmonic Valve Pulmonic valve not well visualized. Pericardium Normal pericardium without effusion. Aorta Normal ascending aorta dimension. CONCLUSIONS Frequent supraventricular ectopy noted. Normal left ventricular size, systolic function and wall thickness, with no regional wall motion abnormalities. Grade I/IV diastolic dysfunction (abnormal relaxation filling pattern), normal to mildly elevated filling pressures. Left ventricular ejection fraction is estimated at 55-60 %. Normal right ventricular size and systolic function. Mild pulmonary hypertension, RVSP 34.1 mmHg. There are no prior echocardiogram studies to compare. Dr. Ariel Webb MD (Electronically Signed) Final Date: 30 Jan 2020 06:33 S
--- NOTE | 2020-01-29 17:26 | CTR_ITS ---
PROCEDURE INFORMATION: Exam: CT Angiography Chest With Contrast Exam date and time: 01/29/2020 9:12 PM Age: 54 years old Clinical indication: Shortness of breath; Chest pain; Additional info: Tachycardia, hypoxia, chest pain TECHNIQUE: Imaging protocol: Computed tomographic angiography of the chest with intravenous contrast. 3D rendering: MIP and/or 3D reconstructed images were created by the technologist. Radiation optimization: All CT scans at this facility use at least one of these dose optimization techniques: automated exposure control; mA and/or kV adjustment per patient size (includes targeted exams where dose is matched to clinical indication); or iterative reconstruction. Contrast material: OMNI 350; Contrast volume: 70 ml; Contrast route: IV; COMPARISON: CR XR chest 1V portable [id number] 01/28/2020 2:14 PM RADIATION DOSE METRICS: Total DLP: 580.89 mGy-cm FINDINGS: Pulmonary arteries: There is no pulmonary embolus. Aorta: Unremarkable. No aortic aneurysm. No aortic dissection. Lungs: There is no dense lobar consolidation. There is mild dependent atelectasis. There is diffuse airspace density, which may represent pneumonia, pulmonary edema, or inflammatory pneumonitis such as ARDS. Pleural space: Unremarkable. No pneumothorax. No pleural effusion. Heart: Unremarkable. No cardiomegaly. No pericardial effusion. Lymph nodes: Unremarkable. No enlarged lymph nodes. Gallbladder and bile ducts: There has been a cholecystectomy. Stomach and bowel: There has been a gastric stapling and bypass. 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 Chronic anterior wedging fracture deformity of T7 and T12 is noted. No acute fracture. Soft tissues: Unremarkable. CT/CT angio chest PE protcl [id number] IMPRESSION: 1. There is no pulmonary embolus. 2. There is diffuse airspace density, which may represent pneumonia, pulmonary edema, or inflammatory pneumonitis such as ARDS. Radiation Dose CTDIVOL = (mGy): DLP = 580.89 (mGy-cm)
[2020-01-29] MEDS: levofloxacin-dextrose 5 % 750 MG/150 ML PREMIX 150 MG IV (17:55)
--- NOTE | 2020-01-29 19:07 | P.PN_ITS ---
Subjective Subjective: Interval history: Today she is feeling better. She is noticing improvement with diuresis. Respiratory treatments. Occasional chest tightness still coming back, although not having any discomfort currently. Vitals/I&O/Wt Last Vital Signs Temp 98.7 F 01/29/20 16:00 Pulse 79 01/29/20 17:00 Resp 28 H 01/29/20 17:00 BP 102/71 01/29/20 17:00 Pulse Ox 100 01/29/20 17:00 01/29/20 01/29/20 01/29/20 06:59 14:59 22:59 Intake Total 600 / 600 300 / 900 Output Total 2350 / 2350 650 / 650 350 / 1000 Balance -2350 / -2200 -50 / -50 -50 / -100 Weight last 48 hrs Weight 67.358 kg Weight 68.039 kg Physical Exam Const: COMMON NORMALS: no acute distress and patient oriented x3 HENMT: COMMON NORMALS: oropharynx normal Neck/C-Spine: COMMON NORMALS: no JVD Resp: COMMON NORMALS: normal respiratory effort AUSCULTATION: no wheezes and diminished lung sounds (With better air entry) Cardio: COMMON NORMALS: no JVD, regular rhythm, S1 normal heart sound present, S2 normal heart sound present and No murmurs present (Cardio) RATE: tachyc ardic RHYTHM: regular rhythm HEART SOUNDS: S1 normal heart sound present and S2 normal heart sound present GI: COMMON NORMALS: Normal to inspection, nondistended, normoactive bowel sounds present, Soft to palpation and non-tender PALPATION: Yes Soft to palpation Extremity: COMMON NORMALS: no joint enlargement GENERAL: Yes edema (Trace) Neuro: COMMON NORMALS: patient oriented x3 and moves all extremities Skin: COMMON NORMALS: no rashes or lesions noted GENERAL SKIN EXAM: no rashes or lesions noted Data : 01/29/20 04:15 01/29/20 04:15 A&P Assessment and plan (1) Acute respiratory failure with hypoxia: Improving symptomatically, also with improvement on lung exam, also down to 3 L by nasal cannula. Diuresing well. For now continue IV Lasix, and if continues to do well, perhaps may switch to oral tomorrow. Follow-up TTE results. COVID-19 was negative. Isolation may be discontinued. At this time continue steroid treatment, antibiotic, inhalers. Will switch to nebulizers. Currently requiring 4 L of oxygen by nasal cannula. Multifactorial including COPD exacerbation, CHF, as well as for now possible PE, for which she is treated empirically and pending additional evaluation. CTA ordered. Status: Acute (2) Chest pain: Currently improved, however, had some persistence of symptoms. Cardiac markers not suggestive of acute MT, entirely normal. Pending assessment by TTE, CTA. For now empirically anticoagulated. Discussed with her at some point may benefit from nonemergent stress testing. Status: Acute Additional A&P Information Smoking addiction: Cont to encourage cessation. Fibromyalgia Pancreatic pseudocyst Chronic constipation Insomnia: She requests for Ambien as she is unable to take her Lunesta here. Discussed with her regarding risk of potential side effects. Attestations Medical Necessity Statement*: Continue admission for assessment of management of respiratory failure with hypoxia. Coding Level of Care Code Acute Toll Collector Supervisor for Wesly Fwelizabeth Exam Comprehensive Diagnoses Acute respiratory failure with hypoxia J96.01 Chest pain R07.9
[2020-01-29] MEDS: ipratropium-albuterol 3 mL Neb INHALATION (20:07)
[2020-01-29] MEDS: budesonide 0.5 mg/2 mL Neb INHALATION (20:07)
[2020-01-29] MEDS: montelukast sodium 10 mg Tablet PO (20:55)
[2020-01-29] MEDS: iohexol 350 mg/mL 100 mL Btl IV (21:31)
[2020-01-29] MEDS: zolpidem 5 mg Tablet PO (23:10)
[2020-01-30] VITALS (14 sets, daily range): BP systolic 93–120; BP diastolic 49–80; PULSE 78–101; RESP 16–24; TEMP 36.4–36.8; O2SAT 87–99
[2020-01-30] MEDS: FUROsemide 10 mg/mL SDV 4mL 40 MG IVP (03:46)
[2020-01-30] MEDS: enoxaparin 80 mg/0.8 mL Syringe 70 MG SUBCUT (04:20)
[2020-01-30 05:04] LABS: Basophils % 0.1 %; Eosinophils % 0.1 %; Hematocrit 42.3 % (37.0-47.0); Lymphocytes # 0.6 10^3/uL (0.8-4.8); Mean Corpuscular HGB Conc 33.1 g/dL (30.0-36.0); Mean Corpuscular Hemoglobin 30.7 pg (28.0-34.0); Mean Corpuscular Volume 92.8 fL (81-99); Monocytes # 0.2 10^3/uL (0.2-0.9); Monocytes % 2.5 %; Neutrophils # 8.8 10^3/uL (1.8-7.7); Neutrophils % 90.8 %; Nucleated Red Blood Cells % 0 %; Platelet Count 192 10^3/cmm (130-400); Red Blood Count 4.56 10^6/uL (4.1-5.3); Red Cell Distribution Width 13.6 % (12.1-15.1); White Blood Count 9.7 10^3/uL (4.0-10.0)
[2020-01-30 05:27] LABS: Alanine Aminotransferase 27 U/L (0-33); Albumin Level 3.7 g/dL (3.5-5.2); Alkaline Phosphatase 113 IU/L (35-105); Anion Gap 15.9 (5-19); Aspartate Amino Transferase 29 U/L (0-32); Blood Urea Nitrogen 16 mg/dL (6-20); Calcium 10.5 mg/dL (8.5-10.5); Carbon Dioxide 31 mmol/L (22-29); Chloride 93 mmol/L (98-107); Globulin 3.4 g/dL (1.3-4.6); Glomerular Filtration Rate 103.8 mL/min (90-130); Glucose 131 mg/dL (65-115); Osmolality Calculated 280 mOsm/kg (285-295); Potassium 3.9 mmol/L (3.5-5.1); Sodium 136 mmol/L (136-145); Total Bilirubin 0.4 mg/dL (0.15-1.2); Total Protein 7.1 g/dL (6.6-8.7)
[2020-01-30] MEDS: ipratropium-albuterol 3 mL Neb INHALATION ×4 (07:24→20:32)
[2020-01-30] MEDS: pregabalin 150 mg Capsule PO ×2 (08:29→17:40)
[2020-01-30] MEDS: pantoprazole DR 40 mg Tablet PO (08:29)
[2020-01-30] MEDS: loratadine 10 mg Tablet PO (08:29)
[2020-01-30] MEDS: oxyCODONE 5 mg IR Tab/Cap 10 MG PO ×3 (08:34→22:48)
[2020-01-30] MEDS: budesonide 0.5 mg/2 mL Neb INHALATION ×2 (08:47→20:32)
--- NOTE | 2020-01-30 13:14 | USCV_ITS ---
Zack Barraza Age: 54 Gender: F : 1965 Exam Date: 01/30/2020 13:36 Ordering Phys: Lencho Zhang MD Technologist: Addie Orona Exam Location: [facility] [place] Indication: SWELLING HISTORY: Lower extremity swelling. PROCEDURES: Venous duplex imaging was performed in bilateral lower extremities. The following venous structures were evaluated: common femoral vein, profunda vein, proximal portion of the greater saphenous vein, superficial femoral vein, and the popliteal vein. In addition, the posterior tibial and peroneal trunk were evaluated. Serial compression, augmentation maneuvers, and spectral Doppler flow evaluation were performed. FINDINGS: Normal 2-D Doppler and augmentation and compressibility throughout the lower extremity venous structures. Additional imaging through the proximal calf veins also reveals no thrombus. Limited evaluation of the greater saphenous vein is patent with no thrombus.. CONCLUSIONS No evidence of right lower extremity DVT. No evidence of left lower extremity DVT. Ethan Singletary MD (Electronically Signed) Final Date: 31 Jan 2020 11:53 S
[2020-01-30] MEDS: predniSONE 20 mg Tablet 60 MG PO (14:31)
[2020-01-30] MEDS: levoFLOXacin 750 mg Tablet PO (17:40)
--- NOTE | 2020-01-30 18:08 | PM.PN ---
Subjective Subjective: Interval history: She is overall doing better, although has not gotten up from out of bed at all so far. Feels breathing treatments have been helping. Still on oxygen. Vitals/I&O/Wt Last Vital Signs Temp 98.2 F 01/30/20 15:45 Pulse 79 01/30/20 15:45 Resp 19 H 01/30/20 15:45 BP 103/69 01/30/20 15:45 Pulse Ox 97 01/30/20 15:45 01/30/20 01/30/20 01/30/20 06:59 14:59 22:59 Intake Total 440 / 1560 480 / 480 Output Total 400 / 1400 900 / 900 450 / 1350 Balance 40 / 160 -420 / -420 -450 / -870 Weight last 48 hrs Weight 66.678 kg Weight 67.358 kg Physical Exam Const: COMMON NORMALS: no acute distress and patient oriented x3 HENMT: COMMON NORMALS: oropharynx normal Neck/C-Spine: COMMON NORMALS: no JVD Resp: COMMON NORMALS: normal respiratory effort AUSCULTATION: wheezes and diminished lung sounds (Bilaterally) Cardio: COMMON NORMALS: no JVD, regular rate, regular rhythm, S1 normal heart sound present, S2 normal heart sound present and No murmurs present (Cardio) RATE: regular rate RHYTHM: regular rhythm HEART SOUNDS: S1 normal heart sound present and S2 normal heart sound present GI: COMMON NORMALS: Normal to inspection, nondistended, normoactive bowel sounds present, Soft to palpation and non-tender PALPATION: Yes Soft to palpation Extremity: COMMON NORMALS: no joint enlargement GENERAL: No edema Neuro: COMMON NORMALS: patient oriented x3 and moves all extremities Skin: COMMON NORMALS: no rashes or lesions noted GENERAL SKIN EXAM: no rashes or lesions noted Data : 01/30/20 04:19 01/30/20 04:19 A&P Assessment and plan (1) Acute respiratory failure with hypoxia: Overall clinically slowly improving. Today noted still on oxygen, but saturation high 90s. She was eager to return home today, however, discussed with her findings on exam with persistent low air entry, wheezing today. Also discussed no PE noted on CTA, however, with bilateral patchy infiltrates suggestive of edema or atypical pneumonia. Discussed with her to try to aim for her to return home tomorrow, would like to see that she is able to transition to oral steroids safely, although will maintained on somewhat higher dose of 60 mg, and she requested to change to oral antibiotics as well. At this time anticoagulation is discontinued, although she did complain of unilateral lower extremity swelling, and will perform duplex ultrasound to exclude DVT. We will attempt to wean down oxygen as possible, and it does appear that overall she is better than admission, on home O2 assessment this evening she does require oxygen with exertion, although at rest appears he is doing well without. Discussed also with her the results of the echo, with grade 1 diastolic dysfunction, suspected mild degree of pulmonary hypertension contributing to her hypoxia. EF is normal. Valves appear unremarkable. COVID-19 was negative. She has been getting good effect from nebulizers, and will continue. Status: Acute (2) Chest pain: Resolved. Not entirely clear etiology, possibly related to her cough/musculoskeletal. No PE is noted, no evidence of acute NM. Discussed with her at some point may benefit from nonemergent stress testing. Status: Acute Additional A&P Information Smoking addiction: Cont to encourage cessation. Fibromyalgia Pancreatic pseudocyst Chronic constipation Insomnia: She requests for Ambien as she is unable to take her Lunesta here. Discussed with her regarding risk of potential side effects. Attestations Medical Necessity Statement*: Continue admission for assessment management of acute respiratory failure with hypoxia due to multifactorial etiology, preparation for discharge. 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
[2020-01-30] MEDS: tizanidine 4 mg Tablet PO (21:06)
[2020-01-30] MEDS: montelukast sodium 10 mg Tablet PO (21:06)
[2020-01-30] MEDS: zolpidem 5 mg Tablet PO (22:48)
[2020-01-31] VITALS (10 sets, daily range): BP systolic 104–112; BP diastolic 67–72; PULSE 71–83; RESP 15–20; TEMP 36.5–36.8; O2SAT 95–99
[2020-01-31] MEDS: ipratropium-albuterol 3 mL Neb INHALATION ×2 (02:47→08:41)
[2020-01-31 05:13] LABS: Basophils % 0.2 %; Eosinophils % 0.7 %; Hematocrit 38.6 % (37.0-47.0); Hemoglobin 12.8 g/dL (11.5-15.3); Lymphocytes # 1.1 10^3/uL (0.8-4.8); Lymphocytes % 18.8 %; Mean Corpuscular HGB Conc 33.2 g/dL (30.0-36.0); Mean Corpuscular Hemoglobin 31.3 pg (28.0-34.0); Mean Corpuscular Volume 94.4 fL (81-99); Mean Platelet Volume 11.7 fL (7.4-10.4); Monocytes # 0.5 10^3/uL (0.2-0.9); Monocytes % 7.5 %; Neutrophils # 4.4 10^3/uL (1.8-7.7); Neutrophils % 72.3 %; Nucleated Red Blood Cells % 0 %; Platelet Count 163 10^3/cmm (130-400); Red Blood Count 4.09 10^6/uL (4.1-5.3); Red Cell Distribution Width 13.3 % (12.1-15.1)
[2020-01-31 05:26] LABS: Alanine Aminotransferase 29 U/L (0-33); Albumin Level 3.6 g/dL (3.5-5.2); Alkaline Phosphatase 85 IU/L (35-105); Anion Gap 15.3 (5-19); Aspartate Amino Transferase 27 U/L (0-32); Blood Urea Nitrogen 12 mg/dL (6-20); Carbon Dioxide 30 mmol/L (22-29); Chloride 91 mmol/L (98-107); Globulin 2.5 g/dL (1.3-4.6); Glomerular Filtration Rate 103.8 mL/min (90-130); Glucose 125 mg/dL (65-115); Osmolality Calculated 274 mOsm/kg (285-295); Potassium 3.3 mmol/L (3.5-5.1); Sodium 133 mmol/L (136-145); Total Bilirubin 0.3 mg/dL (0.15-1.2); Total Protein 6.1 g/dL (6.6-8.7)
[2020-01-31] MEDS: pregabalin 150 mg Capsule PO (08:06)
[2020-01-31] MEDS: predniSONE 20 mg Tablet 60 MG PO (08:06)
[2020-01-31] MEDS: FUROsemide 40 mg Tablet PO (08:06)
[2020-01-31] MEDS: oxyCODONE 5 mg IR Tab/Cap 10 MG PO (08:06)
[2020-01-31] MEDS: pantoprazole DR 40 mg Tablet PO (08:07)
[2020-01-31] MEDS: loratadine 10 mg Tablet PO (08:07)
[2020-01-31] MEDS: heparin 5,000 unit/mL INJ 1 mL 5000 UNIT SUBCUT (08:07)
[2020-01-31] MEDS: budesonide 0.5 mg/2 mL Neb INHALATION (08:41)
--- NOTE | 2020-01-31 09:25 | PC.SOCIAL ---
IMM Page 2 of IMM explained to patient. Initialed, dated, and timed and placed in chart. Copy provided to patient.
[2020-01-31] MEDS: potassium chloride oral liq 20 mEq/15 mL UDC 40 MEQ PO (11:12)
--- NOTE | 2020-01-31 11:17 | PC.CHAP ---
Pastoral Care Encounter/Spiritual Assessment Type of Contact [] Declined splunk dashboard developer visit [] Patient/Family/Request visit [] Outpatient visit [] Follow-up visit [] Physician referral [] Code/Alert [x] Routine visit [] Staff referral [] Actively dying [] Patient sleeping [] Family support [] [] Out of room [] Palliative care [] [] Receiving care in room [] Pre-surgical visit [] Trauma [] Long length of stay [] ICU visit [] Other: Relational/Emotional Strength [x] Patient feels connected with others/family/visitors/staff [] Distress [] Loneliness/isolation [] Abandonment Spirituality of Patient [x] Person of Ashley [] Attends Restorationist of their Ashley [x] Believes in Prayer [] Reads Bible or Yazidism materials [x] There are Spiritual issues to be addressed [employer] Communications Sergeant Interventions [x] Prayer [x] Active listening [x] Non-anxious presence [x] Spiritual/emotional support [] Crisis/trauma care [x] Spiritual counseling [] Bereavement support [] Provided bereavement packet [] Provided Bible/devotional materials [] Provided toy/stuffed animal, coloring book to patient or family member [] Provided Communion [] Anointing/[place] [] Salvation [x] Completed spiritual assessment [] Other: Impact on Illness or Injury [] Angry [] Fearful [] Anxious [] Often cries [] Exhaustion [] Unable to work [] Unable to attend scientology [] Unable to walk/stand [] Unable to read [] Unable to drive [] Unable to eat/drink [] Unable to sleep [] Unable to be with family [] Patient intubated [x] Other: n/a Summary Time spent with patient 10 minutes
--- NOTE | 2020-01-31 14:40 | PC.NURSE ---
H.O.M.Talisha. here to give patient home oxygen.
--- NOTE | 2020-01-31 15:00 | PC.NURSE ---
Reviewed discharge instructions with patient at this time. Patient verbalized understanding of her home medications and oxygen use. IV removed intact. Patient was wheel chaired to private car. Patient is A&Ox3.
--- NOTE | 2020-01-31 18:27 | P.DS_ITS ---
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 Of note she had sustained a mechanical fall the week prior, hitting both sides of her chest on the edge of the bathtub. In ER she is noted newly hypoxic, requiring 4 L of oxygen, with diffuse bilateral patchy opacities representing diffuse pneumonia or unusual pulmonary edema. With noted peripheral edema, elevated BNP. She was treated for multifactorial acute respiratory failure with hypoxia secondary to COPD exacerbation with noted severely decreased air entry, bilateral wheezing, acute CHF exacerbation with pulmonary edema. Initially empirically maintained on anticoagulation due to concern for possible PE, with initial unilateral lower extremity swelling, chest pain, cough, sinus tachycardia on presentation. CTA eventually did not show PE, with again bilateral patchy infiltrates. COVID-19 and influenza were tested and both negative. Her symptoms improved with diuresis, empiric antibiotic treatment for pneumonia, IV steroids for COPD as suppression, breathing treatments, oxygen support. Her condition gradually improved, she was able to wean down on oxygen requirement, not needing any oxygen at rest, and down to 2 L with exertion on home evaluation. TTE reveals normal ejection fraction, unremarkable valves, grade 1 diastolic dysfunction, suspicion for mild degree of pulmonary hypertension. Duplex of lower extremity did not reveal DVT, and anticoagulation was discontinued. All results discussed with her and she was also extensively counseled on smoking cessation. Due to risk factors for coronary disease she is referred for nonemergent stress testing once she recovers from acute condition, with chemical stress testing as she is unable to walk on a treadmill due to chronic pain issues. She has reported feeling much better and requested to return home. She has had no further chest pain, etiology of which is unclear, but thought perhaps musculoskeletal secondary to cough and fibromyalgia. She is set up with an nebulizer at home. Due to hypoxia and multifactorial respiratory failure she is set up with a nebulizer at home, started on DuoNeb and inhaled budesonide, will complete a steroid taper, course of antibiotic, for now continue oxygen support with activity weaning as tolerating (will be purchasing a pulse oximeter) and referred for follow-up with pulmonology. Please continue to encourage smoking cessation. Physical Exam Const: COMMON NORMALS: no acute distress and patient oriented x3 HENMT: COMMON NORMALS: oropharynx normal Neck/C-Spine: COMMON NORMALS: no JVD Resp: COMMON NORMALS: normal respiratory effort AUSCULTATION: wheezes (almost resolved) and lung sounds not diminished (Bilaterally) Cardio: COMMON NORMALS: no JVD, regular rate, regular rhythm, S1 normal heart sound present, S2 normal heart sound present and No murmurs present (Cardio) RATE: regular rate RHYTHM: regular rhythm HEART SOUNDS: S1 normal heart sound present and S2 normal heart sound present GI: COMMON NORMALS: Normal to inspection, nondistended, normoactive bowel sounds present, Soft to palpation and non-tender PALPATION: Yes Soft to palpation Extremity: COMMON NORMALS: no joint enlargement GENERAL: No edema Neuro: COMMON NORMALS: patient oriented x3 and moves all extremities Skin: COMMON NORMALS: no rashes or lesions noted GENERAL SKIN EXAM: no rashes or lesions noted Discharge Data Data Completed and Pending: Completed Studies During Hospitalization Category Date Time Status CT angio chest PE protcl [id number] Rout ine Cat Scan 01/29/20 17:26 Completed XR chest 1V brianne ble [id number] Stat Exams 01/28/20 13:56 Completed CV echo complete* [id number] Routine Ultrasound 01/29/20 15:00 [place] [id number] Routin e Ultrasound 01/30/20 13:14 Completed Labs from last 24 hours 01/31/20 01/31/20 04:12 04:12 WBC 6.0 RBC 4.09 L Hgb 12.8 Hct 38.6 MCV 94.4 MCH 31.3 MCHC 33.2 RDW 13.3 Plt Count 163 MPV 11.7 H Neut % (Auto) 72.3 Lymph % (Auto) 18.8 [place] % (Auto) 7.5 Eos % (Auto) 0.7 Baso % (Auto) 0.2 Neut # (Auto) 4.4 Lymph # (Auto) 1.1 [place] # (Auto) 0.5 Eos # (Auto) 0.0 Baso # (Auto) 0.0 Nucleated RBC % (a uto) 0 Nucleated RBCs # 0.0 Sodium 133 L Potassium 3.3 L Chloride 91 L Carbon Dioxide 30 H Anion Gap 15.3 BUN 12 Creatinine 0.6 GFR Calculation 103.8 Glucose 125 H Calculated Osmolal ity 274 L Calcium 9.0 Total Bilirubin 0.3 AST 27 ALT 29 Alkaline Phosphata se 85 Total Protein 6.1 L Albumin 3.6 Globulin 2.5 Vitals: Last Vital Signs Temp 97.7 F 01/31/20 15:00 Pulse 83 01/31/20 15:00 Resp 16 01/31/20 15:00 BP 105/70 01/31/20 15:00 Pulse Ox 98 01/31/20 15:00 Discharge Plan Discharge Patient Disposition: Home, Self-Care Condition: Stable Prescriptions: New ipratropium-albuterol 0.5 mg-3 mg(2.5 mg base)/3 mL Solution For Nebulization 3 ml inhalation Q6H PRN (Reason: Shortness Of Breath) Qty: 90 RF: 0 prednisone 20 mg Tablet See Rx Instructions .ROUTE .COMPLEX Qty: 21 RF: 0 nicotine 21 mg/24 hr Patch 24 Hour 1 patch transdermal DAILY Qty: 30 RF: 0 levofloxacin 750 mg Tablet 750 mg PO Q24H Qty: 6 RF: 0 budesonide 0.5 mg/2 mL Suspension For Nebulization 0.5 mg inhalation BID.RESPIRATORY Qty: 60 RF: 0 nicotine (polacrilex) 2 mg lozenge 2 mg BUCCAL Q1H PRN (Reason: nicotine cravings) Qty: 60 RF: 2 Lasix 20 mg tablet 20 mg PO DAILY PRN (Reason: edema) Qty: 30 RF: 0 Continued eszopiclone [Lunesta] 1 mg tablet 1 mg PO .bedtime RF: 0 meloxicam 15 mg tablet 15 mg PO DAILY RF: 0 Linzess 145 mcg capsule 145 mcg PO DAILY RF: 0 cyanocobalamin (vitamin B-12) 1,000 mcg capsule 1,000 mcg PO DAILY RF: 0 pregabalin [Lyrica] 150 mg capsule 150 mg PO BID RF: 0 albuterol sulfate [Ventolin HFA] 90 mcg/actuation HFA aerosol inhaler 1 inh INHALATION QID RF: 0 ferrous sulfate [Feosol] 325 mg (65 mg iron) tablet 325 mg PO DAILY RF: 0 montelukast [Singulair] 10 mg tablet 10 mg PO DAILY RF: 0 oxycodone 10 mg tablet 10 mg PO TID PRN (Reason: Pain) RF: 0 Creon 12,000-38,000 -60,000 unit capsule,delayed release(DR/EC) 1 cap PO BID 30 Days Qty: 60 RF: 1 loratadine 10 mg tablet 10 mg PO DAILY 30 Days Qty: 30 RF: 0 fluticasone propionate 50 mcg/actuation spray,suspension 2 spray INTRANASAL Q12H 30 Days Qty: 18.2 RF: 0 tizanidine 4 mg capsule See Rx Instructions PO DAILY MDD UP TO 2 CAPS PRN (Reason: muscle spasticity) Qty: 30 RF: 2 hydroxyzine pamoate 50 mg Capsule 50 mg PO BID RF: 0 pantoprazole 20 mg tablet,delayed release (DR/EC) 20 mg PO DAILY RF: 0 Premarin 0.3 mg tablet 0.3 mg PO DAILY RF: 0 lactulose 10 gram/15 mL Solution 10 g PO DAILY RF: 0 Forteo 20 mcg/dose - 600 mcg/2.4 mL pen injector 20 mcg SUBCUT DAILY RF: 0 Discontinued Symbicort 160-4.5 mcg/actuation HFA aerosol inhaler 2 puff INHALATION BID RF: 0 Discharge Orders: Discharge Order (Routine); Ordered 01/31/20 Ordered By: Lencho Zhang Other Ambulatory Orders: DME: Nebulizer with Neb Kit (Order) Location: None Selected Ordered By: Lencho Zhang DME: Oxygen (Order) Location: None Selected Ordered By: Lencho Zhang Referrals: [facility] cardiology laboratory [Other] - 02/12/20 7:00 am (Stress test on TuesdayFebruary 11, at 7am. No caffiene 24 hours before test and No food or drinks after midnight.) [facility] [place] Devan Gupta MD [Physician] - 2 weeks Sally Beard MD [Primary Care Provider] - 4-7 days Discharge Diet: Cardiac Discharge Activity: Oxygen as instructed Patient Instructions: Chest Pain - Noncardiac, Furosemide (By mouth), Prednisone (By mouth), Nicotine (Absorbed through the skin), Ipratropium (Into the nose), Budesonide (By breathing) Activity Restrictions/Additional Instructions: Please stop smoking. Please never smoke near oxygen due to severe fire hazard and risk of borden. Please obtain a pulse oximeter, target saturation 88-92% at home. If you experience persistent worsening in shortness of breath, recurrence/persistence of chest pain, any spiking fevers, coughing up blood, or other abnormal symptoms, please seek medical attention without delay. 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
== END 2020-01-31 15:00 | disposition home or self-care (01) | DRG 189 ==
LOC: ER 14:19 → ICU 16:15 → MEDSURG 01-29 20:22
PROVIDERS: Emergency Medicine; Admitting Provider Internal Medicine; PCP Family Medicine; Visit Provider Internal Medicine
DX: J96.01 Acute respiratory failure with hypoxia (principal); J18.9 Pneumonia, unspecified organism; J44.1 Chronic obstructive pulmonary disease with (acute) exacerbation; J44.0 Chronic obstructive pulmonary disease with (acute) lower respiratory infection; K86.3 Pseudocyst of pancreas; F17.210 Nicotine dependence, cigarettes, uncomplicated; M79.7 Fibromyalgia; K59.09 Other constipation; G89.4 Chronic pain syndrome; M54.2 Cervicalgia; M25.561 Pain in right knee; E87.6 Hypokalemia; N32.81 Overactive bladder; M48.061 Spinal stenosis, lumbar region without neurogenic claudication; Z98.84 Bariatric surgery status; Z96.659 Presence of unspecified artificial knee joint; M79.89 Other specified soft tissue disorders; Z79.891 Long term (current) use of opiate analgesic; Z79.51 Long term (current) use of inhaled steroids; Z79.890 Hormone replacement therapy
CPT/HCPCS: 12345; 36415; 36600; 71045; 71275; 80053; 81001; 82803; 83605; 83880; 84145; 84484; 85025; 85378; 85651; 86140; 87635; 87804; 93005; 93306; 93970; 94640; 96372; 96375; 99282; J1644; J1650; J1885; J1940; J1956; J2270; J2405; J2930; J3535; J7030; J7512; J7626; Q9967

== ENCOUNTER 2020-04-24 13:06 | Outpatient (CLI) | payer MEDICARE, MEDICAID, SELFPAY ==
--- NOTE | 2020-04-24 13:15 | XR_ITS ---
WS: [id number] PROCEDURE: XR chest 2V* [id number] CLINICAL INFORMATION: URTI COMPARISON: January 28, 2020 FINDINGS: Heart: Normal cardiac silhouette. Lungs: Lungs are clear. No consolidation or pleural fluid. Bones: Mild thoracic curve convex right. Cholecystectomy clips. Surgical clips at the GE junction. XR/XR chest 2V* [id number] IMPRESSION: No acute chest findings.
== END 2020-04-24 13:07 | disposition home or self-care (01) ==
LOC: RAD 13:12
PROVIDERS: PCP Family Medicine; Visit Provider Internal Medicine Pulmonary Disease
DX: J06.9 Acute upper respiratory infection, unspecified (principal)
CPT/HCPCS: 71046

== ENCOUNTER 2021-08-11 13:41 | Outpatient (CLI) | payer MEDICARE, MEDICAID, SELFPAY ==
[2021-08-11 15:30] LABS: Anion Gap 15.4 (5-19); Blood Urea Nitrogen 7 mg/dL (6-20); Calcium 8.5 mg/dL (8.5-10.5); Carbon Dioxide 22 mmol/L (22-29); Chloride 103 mmol/L (98-107); Glomerular Filtration Rate 165.1 mL/min (90-130); Glucose 97 mg/dL (65-115); Magnesium 1.6 mg/dL (1.7-2.3); NT Pro B Type Natriuretic Pept 510 pg/mL (0-125); Osmolality Calculated 284 mOsm/kg (285-295); Sodium 138 mmol/L (136-145)
[2021-08-11 15:37] LABS: Potassium 2.4 mmol/L (3.5-5.1)
== END 2021-08-11 13:42 | disposition home or self-care (01) ==
LOC: LAB 13:44
PROVIDERS: PCP Family Medicine; Visit Provider Internal Medicine Interventional Cardiology
DX: I21.9 Acute myocardial infarction, unspecified (principal); J44.9 Chronic obstructive pulmonary disease, unspecified; I50.9 Heart failure, unspecified; K21.9 Gastro-esophageal reflux disease without esophagitis; F41.9 Anxiety disorder, unspecified; M79.7 Fibromyalgia
CPT/HCPCS: 80048; 83735; 83880

== ENCOUNTER 2021-09-02 15:43 | Outpatient (CLI) | payer MEDICARE, MEDICAID, SELFPAY ==
[2021-09-02 16:07] LABS: Hematocrit 36.9 % (37.0-47.0); Hemoglobin 11.7 g/dL (11.5-15.3); Mean Corpuscular HGB Conc 31.7 g/dL (30.0-36.0); Mean Corpuscular Hemoglobin 30.2 pg (28.0-34.0); Mean Corpuscular Volume 95.1 fl (81-99); Mean Platelet Volume 12.8 fL (7.4-10.4); Platelet Count 183 10^3/cmm (130-400); Red Blood Count 3.88 10^6/uL (4.1-5.3); Red Cell Distribution Width 15.2 % (12.1-15.1); White Blood Count 7.1 10^3/uL (4.0-10.0)
[2021-09-02 16:42] LABS: Alanine Aminotransferase 13 U/L (0-33); Albumin Level 3.1 g/dL (3.5-5.2); Alkaline Phosphatase 124 IU/L (35-105); Anion Gap 14.9 (5-19); Aspartate Amino Transferase 16 U/L (0-32); Blood Urea Nitrogen 5 mg/dL (6-20); Calcium 8.2 mg/dL (8.5-10.5); Carbon Dioxide 22 mmol/L (22-29); Chloride 109 mmol/L (98-107); Globulin 2.7 g/dL (1.3-4.6); Glomerular Filtration Rate 127.6 mL/min (90-130); Glucose 79 mg/dL (65-115); Phosphorus 2.2 mg/dL (2.5-4.5); Potassium 3.9 mmol/L (3.5-5.1); Sodium 142 mmol/L (136-145); Total Bilirubin 0.3 mg/dL (0.15-1.2); Total Protein 5.8 g/dL (6.6-8.7)
[2021-09-02 17:10] LABS: Absolute Eosinophils 0.4 10^3/cmm (0.0-0.7); Absolute Neutrophil 3.7 10^3/cmm (1.4-6.5); Absolute Segmented Neutrophil 3.7 10/cmm (1.6-7.1); Eosinophils 6 %; Lymphocytes 31 %; Lymphocytes Absolute 2.3 10^3/cmm (1.2-3.4); Monocytes Absolute 0.6 10^3/cmm (0.1-0.6); Platelet Estimate Normal (Normal); Segmented Neutrophils 52 %; Total Cells Counted 100 (0-100)
== END 2021-09-02 15:44 | disposition home or self-care (01) ==
LOC: LAB 15:48
PROVIDERS: PCP Family Medicine; Visit Provider Family Medicine
DX: I21.4 Non-ST elevation (NSTEMI) myocardial infarction (principal); J44.9 Chronic obstructive pulmonary disease, unspecified; I50.9 Heart failure, unspecified; K21.9 Gastro-esophageal reflux disease without esophagitis; F41.9 Anxiety disorder, unspecified; M79.7 Fibromyalgia
CPT/HCPCS: 80069; 80076; 85007; 85027

== ENCOUNTER 2022-02-02 13:12 | Outpatient (CLI) | payer MEDICARE, MEDICAID, SELFPAY ==
[2022-02-02 13:58] LABS: Albumin Level 3.7 g/dL (3.5-5.2); Calcium 9.1 mg/dL (8.5-10.5)
[2022-02-02] MEDS: denosumab 60 mg SDV SUBCUT (14:02)
== END 2022-02-02 13:13 | disposition home or self-care (01) ==
LOC: ONCMED 13:13
PROVIDERS: PCP Family Medicine; Referring Provider Nurse Practitioner; Visit Provider Nurse Practitioner
DX: M81.0 Age-related osteoporosis without current pathological fracture (principal); Z01.89 Encounter for other specified special examinations
CPT/HCPCS: 36415; 82040; 82310; 96372; J0897

== ENCOUNTER 2023-08-12 12:44 | Emergency (ER) | payer MEDICARE, MEDICAID, SELFPAY ==
[2023-08-12 12:47] VITALS: BP 104/79; PULSE 104; RESP 18; TEMP 36.8; O2SAT 98; BMI 19.5
--- NOTE | 2023-08-12 12:55 | XRR_ITS ---
PROCEDURE INFORMATION: Exam: XR Left Hip Exam date and time: 08/12/2023 1:12 PM Age: 57 years old Clinical indication: Injury or trauma; Fall; Blunt trauma (contusions or hematomas); Left; Hip; Additional info: Fall, left hip/pelvis pain TECHNIQUE: Imaging protocol: Radiologic exam of the left hip. Views: 2 or 3 views hip with pelvis when performed. COMPARISON: CR XR lumbar spine 2-3V* [id number] 08/12/2023 1:12 PM FINDINGS: Bones/joints: No fracture or dislocation. Mild degenerative changes. Soft tissues: No acute findings. XR/XR hip LT 2-3V wo/w pel* [id number] IMPRESSION: No acute findings.
--- NOTE | 2023-08-12 12:55 | XRR_ITS ---
PROCEDURE INFORMATION: Exam: XR Lumbosacral Spine Exam date and time: 08/12/2023 1:12 PM Age: 57 years old Clinical indication: Injury or trauma; Fall; Blunt trauma (contusions or hematomas); Additional info: Fall left sided back pain TECHNIQUE: Imaging protocol: Radiologic exam of the lumbosacral spine. Views: 2 or 3 views. COMPARISON: CR XR hip LT 2-3V wo/w pel* [id number] 08/12/2023 1:12 PM FINDINGS: Bones/joints: Grade 1 anterolisthesis of L3 on L4 and L4 on L5 and L5 on S1 with mild spondylosis at these levels as well. Unchanged T12 mild height loss and anterior wedging. No evidence of acute fracture. Soft tissues: No acute findings. XR/XR lumbar spine 2-3V* [id number] IMPRESSION: Degenerative changes without acute findings.
--- NOTE | 2023-08-12 12:55 | CT_ITS ---
WS: [id number] CT HEAD TECHNIQUE: Noncontrast CT of the head obtained from the skullbase to the vertex. CLINICAL INFORMATION: fall post head pain, on eliquis COMPARISON: None. DLP: 1041.[address] scans at [facility] use at least one of these dose optimization techniques: automated e xposure control; mA and/or kV adjustment per patient size (includes targeted exams where dose is matc hed to clinical indication); or iterative reconstruction. FINDINGS: No evidence of intracranial hemorrhage or mass effect. Ventricular system and basal cisterns are elkins nt. Mild small vessel changes with mild parenchymal volume loss. Intracranial vascular calcification. No extra-axial fluid collections. No evidence of mass or mass effect. Normal peña-white differentiat ion. Dense calcification LEFT middle cranial fossa measuring 9 mm most likely represents small incidental calcified meningioma with a small calcified dural tail. Air-fluid levels LEFT maxillary sinus and sph enoid sinus compatible with sinusitis. IMPRESSION: 1. No evidence of intracranial hemorrhage or mass effect. 2. LEFT maxillary and sphenoid air-fluid levels compatible with sinusitis. 3. Dense calcification LEFT middle cranial fossa measuring 9 mm most likely represents small inciden ana calcified meningioma. This can be followed up with MRI without and with gadolinium enhancement. 4. No acute intracranial findings.
--- NOTE | 2023-08-12 13:29 | ED_ITS ---
HPI - Fall General: Chief Complaint: Fall Stated Complaint: fall Time Seen by Provider: 08/12/23 12:54 History of Present Illness: Patient presents to the ER with falling a couple times over the last several days. Patient landed on her left side and has left hip pain left low back pain and hit the back of her head. Patient is on Eliquis. Patient is complaining of pain in all these areas. Patient did not lose consciousness blackout or pass out. Patient says her leg just gave out on her and she fell. MD complaint: fall Onset (ago): day(s) Fall from: standing Place fall occurred: home Loss of consciousness: None Symptoms prior to fall: none Context: tripped/slipped Location of injury: head and pelvis Review of Systems General: Reports: 10 or more systems reviewed and unremarkable except in HPI and below PFSH ED PFSH: Medical History Tremor Neuropathy Anxiety Arthritis Asthma Dyspnea GERD (gastroesophageal reflux disease) IBS (irritable bowel syndrome) Pancreatitis Pancreatic pseudocyst Hypokalemia Chronic constipation Chronic pain of right knee Chronic neck pain COPD (chronic obstructive pulmonary disease) Overactive bladder Spinal stenosis of lumbar region Chronic idiopathic pain syndrome Fibromyalgia Surgical History History of lumbar laminectomy Hx of cholecystectomy History of carpal tunnel surgery H/O: hysterectomy H/O gastric bypass History of knee replacement Family History Sister Cancer Chronic kidney disease (CKD) Diabetes Sister Cancer Diabetes Father Cancer Brother Cancer Mother Lung disease Other Hyperlipidemia Denies family history of CAD (coronary artery disease) Clotting disorder Dementia Suicide Anesthesia complication Bleeding disorder Stroke Social History Smoking and tobacco/nicotine status: former use of tobacco/nicotine Alcohol intake: never Substance/Drug Use: never Lives independently: Yes Household members: significant other Marital status: Legally Current occupational status: disabled Do you think of yourself as: Straight/Heterosexual Current gender identity: Female Physical Exam Const: COMMON NORMALS: no acute distress, average body habitus, patient oriented x3, no limitations, healthy appearing, alert and well nourished HENMT: COMMON NORMALS: normocephalic, hearing grossly normal bilaterally, external ears normal, Normal external nose present, moist oral mucous membranes and oropharynx normal; head/scalp not atraumatic (Tender to palpate posterior superior occipital region) HEAD & SCALP: normocephalic; not atraumatic (Tender to palpate posterior superior occipital region) NOSE: Normal external nose present EXTERNAL EAR: Yes external ears normal Neck/C-Spine: COMMON NORMALS: full ROM, no lymphadenopathy, supple, no meningeal signs, no JVD and Thyroid normal THYROID: Thyroid normal Chest: COMMONS NORMALS: normal inspection of the chest and normal palpation of entire chest wall Resp: COMMON NORMALS: normal respiratory effort, No retractions, No use of accessory muscles and clear to auscultation bilaterally AUSCULTATION: clear to auscultation bilaterally Cardio: COMMON NORMALS: no JVD, regular rate, regular rhythm, S1 normal heart sound present, S2 normal heart sound present, No gallops present (Cardio), No clicks present (Cardio), No murmurs present (Cardio) and No rub (Cardio) RATE: regular rate RHYTHM: regular rhythm HEART SOUNDS: S1 normal heart sound present and S2 normal heart sound present GI: COMMON NORMALS: Normal to inspection, nondistended, normoactive bowel sounds present, Soft to palpation, non-tender, No hepatosplenomegaly present and no masses PALPATION: Yes Soft to palpation and Yes No hepatosplenomegaly present Back/Pelvis: OTHER: Tender to palpate left lateral posterior paraspinal musculature region Extremity: NARRATIVE EXTREMITY EXAM: Tender to palpate over left hip and left lateral pelvis region. No gross crepitus or deformity noted Neuro: COMMON NORMALS: patient oriented x3 SENSORIUM/ORIENTATION: Yes alert MENINGEAL SIGNS: Yes no meningeal signs Course Vital Signs: Vital signs: Vital Signs Temperature 98.3 F 08/12/23 12:47 Pulse Rate 104 H 08/12/23 12:47 Respiratory Rate 18 08/12/23 12:47 Blood Pressure 104/79 08/12/23 12:47 Pulse Oximetry 98 08/12/23 12:47 Oxygen Delivery Me thod Room Air 08/12/23 12:47 MDM - Fall Medical Decision Making Patient presents to the ER status post multiple falls with complaints of head pain and left hip and low back pain. X-rays were obtained of hip and pelvis, lumbar spine and head CT. All of which was read off as negative for acute changes. Patient be discharged home to follow-up with her PCP on an as-needed basis. Differential Diagnosis Unlikely syncope, dislocation of shoulder region, fracture of wrist, compression fracture, concussion with loss of consciousness or concussion without loss of consciousness Medical Records I reviewed the patient's medical records. Lab Data I reviewed the patient's lab results. Radiology Impressions Hip/Pelvis X-Ray 08/12/23 12:55 IMPRESSION: No acute findings. Lumbar Spine X-Ray 08/12/23 12:55 IMPRESSION: Degenerative changes without acute findings. All radiology interpretation(s) finalized by discharge Discharge Plan Discharge Patient Disposition: Home Clinical Impression: Acute pain of left hip Fall Qualifiers: Encounter type: initial encounter Qualified Code(s): W19.XXXA - Unspecified fall, initial encounter Contusion of head Qualifiers: Encounter type: initial encounter Contusion of head detail: scalp Qualified Code(s): S00.03XA - Contusion of scalp, initial encounter Low back pain Qualifiers: Chronicity: acute Back pain laterality: left Sciatica presence: without sciatica Qualified Code(s): M54.50 - Low back pain, unspecified Condition: Stable Prescriptions: No Action cyanocobalamin (vitamin B-12) 1,000 mcg/mL solution 100 mcg IM Q30D nitroglycerin 0.4 mg tablet, sublingual 0.4 mg sublingual Q5M PRN (Reason: chest pain) Stiolto Respimat 2.5-2.5 mcg/actuation mist 2 puff inhalation DAILY meloxicam 15 mg tablet 15 mg PO DAILY Linzess 145 mcg capsule 145 mcg PO DAILY cyanocobalamin (vitamin B-12) 1,000 mcg capsule 1,000 mcg PO DAILY albuterol sulfate [Ventolin HFA] 90 mcg/actuation HFA aerosol inhaler 1 inh INHALATION QID PRN (Reason: Shortness Of Breath) montelukast [Singulair] 10 mg tablet 10 mg PO DAILY oxycodone 10 mg tablet 10 mg PO TID PRN (Reason: Pain) loratadine 10 mg tablet 10 mg PO DAILY 30 Days Qty: 30 0RF tizanidine 4 mg capsule See Rx Instructions PO DAILY MDD UP TO 2 CAPS PRN (Reason: muscle spasticity) Qty: 30 2RF Rx Instructions: 1-2 CAPS PO daily PRN; Creon 12,000-38,000 -60,000 unit capsule,delayed release(DR/EC) 1 cap PO BID 30 Days Qty: 60 5RF hydroxyzine pamoate 50 mg Capsule 50 mg PO BID lactulose 10 gram/15 mL Solution 10 g PO DAILY Forteo 20 mcg/dose - 600 mcg/2.4 mL pen injector 20 mcg SUBCUT DAILY ipratropium-albuterol 0.5 mg-3 mg(2.5 mg base)/3 mL Solution For Nebulization 3 ml inhalation Q6H PRN (Reason: Shortness Of Breath) Qty: 90 0RF sucralfate 1 gram tablet 1 g PO QID potassium chloride 20 mEq tablet,ER particles/crystals 20 meq PO BID promethazine 25 mg tablet 25 mg PO TID PRN (Reason: Nausea) omeprazole 20 mg capsule,delayed release(DR/EC) 20 mg PO BID duloxetine 60 mg capsule,delayed release(DR/EC) 30 mg PO DAILY eszopiclone 3 mg tablet 3 mg PO BEDTIME pregabalin 100 mg capsule 100 mg PO BID Corlanor 5 mg tablet 5 mg PO BID Eliquis 2.5 mg tablet 2.5 mg PO BID budesonide 0.5 mg/2 mL suspension for nebulization 0.5 mg inhalation BID.RESPIRATORY PRN (Reason: Shortness Of Breath) fluticasone propionate 50 mcg/actuation spray,suspension 2 spray intranasal BID Discharge Orders: Discharge ED (Routine); Ordered 08/12/23 Ordered By: Jose G Leonard Referrals: Patricia Drew DO [Primary Care Provider] - 1 week Patient Instructions: Contusion in Adults (ED), Fall Prevention Coding Level of Care Code 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
== END 2023-08-12 14:43 | disposition home or self-care (01) ==
PROVIDERS: Emergency Provider Emergency Medicine; PCP Family Medicine
DX: M25.552 Pain in left hip (principal); S00.03XA Contusion of scalp, initial encounter; M54.50 Low back pain, unspecified; Z79.01 Long term (current) use of anticoagulants; Z87.891 Personal history of nicotine dependence; J44.9 Chronic obstructive pulmonary disease, unspecified; W19.XXXA Unspecified fall, initial encounter
CPT/HCPCS: 70450; 72100; 73502; 99284